=== PATIENT | female | born 1965 ===

== ENCOUNTER 2017-06-10 11:21 | Emergency (ER) | payer BC ==
[2017-06-10 11:28] VITALS: PULSE 84; TEMP 98; O2SAT 97; BMI 53.5
[2017-06-10 11:52] VITALS: RESP 22
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
[2017-06-10 13:56] VITALS: BP 143/84
--- NOTE | 2017-06-10 14:23 | RAD ---
PROCEDURE: Cervical Spine Radiographs. HISTORY: Pain. COMPARISON: None. FINDINGS: BONES: Alignment maintained. No fracture. Dens Intact. Straightening of the cervical spine which could be due to muscle spasm. DISC SPACES: Moderate to mildly severe degenerative disc changes associated with multilevel disc spaces narrowing SOFT TISSUES: Normal. No prevertebral soft tissue swelling. OTHER FINDINGS: None. IMPRESSION: Degenerative disc changes. No evidence of acute fracture or subluxation. Straightening of the cervical spine which could be due to muscle spasm.
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
== END 2017-06-10 13:55 | disposition home or self-care (01) ==
LOC: H.ER 11:21
DX: M54.9 Dorsalgia, unspecified (principal); V49.49XA Driver injured in collision with other motor vehicles in traffic accident, initial encounter; Y92.410 Unspecified street and highway as the place of occurrence of the external cause